=== PATIENT | male | born 1995 | race Two or more races ===

== ENCOUNTER 2024-07-31 10:24 | Emergency (ER) | payer OTHER, SELFPAY ==
[2024-07-31 11:09] VITALS: BP 145/83; PULSE 73; RESP 19; TEMP 36.9; O2SAT 97; BMI 34.0
--- NOTE | 2024-07-31 11:14 | EKG_ITS ---
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
--- NOTE | 2024-07-31 11:14 | XR_ITS ---
Examination: CT brain head without contrast. 2-D sagittal coronal reconstructions Date and time of exam:July 31, 2024 1208 hours INDICATIONS: Dizziness lightheadedness right-sided body numbness beginning 2 days ago CTDI: vol (mGy):54.1 DLP: (mGycm):1037 Technique: Multiple CT axial sections of the brain have been obtained, 5 mm slice thickness. Contrast has not been administered. 2-D sagittal, coronal reconstructions have been obtained Low dose protocols were performed. One or more of the following dose reduction techniques were used; automated exposure control, adjustment of the mA and/or KV according to patient size, use of iterative reconstruction technique. Findings: No significant ventricular enlargement. Intra-axial or extra-axial hemorrhage density is not seen. No mass effect or midline shift Basal cisterns are not remarkable. Fourth ventricle is midline. Cranial vault intact. Impression: Negative for acute hemorrhage, mass effect or midline shift As clinically warranted, brain MRI follow-up would best assess for demyelinating disease
--- NOTE | 2024-07-31 11:15 | PD.EDRME ---
Rapid Medical Screening Exam [facility] Arrival date/time: 07/31/24 10:24 28-year-old male with no known medical history presents to the emergency room with a chief complaint of right sided numbness to his face, hands, foot that occurred on Wednesday night. Patient states he saw his primary care provider and was sent to the emergency room. I have greeted and performed a focused initial assessment of this patient. A comprehensive ED assessment and evaluation of the patient, analysis of all test results, and completion of the medical decision making process will be conducted by additional ED providers. Chief Complaint: Headache Time Seen by Provider: 07/31/24 11:03 Vital signs: Vital Signs Temperature 98.5 F 07/31/24 11:09 Pulse Rate 73 07/31/24 11:09 Respiratory Rate 19 07/31/24 11:09 Blood Pressure 145/83 H 07/31/24 11:09 Pulse Oximetry (%) 97 07/31/24 11:09 Oxygen Delivery Method Room Air 07/31/24 11:09 Vital signs reviewed by provider: Yes
[2024-07-31 11:37] LABS: Basophils # (Auto) 0.1 Thou/mm3 (0.0-0.2); Basophils % (Auto) 1 % (0-2.5); Eosinophils # (Auto) 0.2 Thou/mm3 (0.0-0.5); Eosinophils % (Auto) 2 % (0-10); Hematocrit 48.4 % (41.0-53.0); Hemoglobin 16.6 g/dL (13.5-16.0); Immature Granulocytes % (Auto) 0 % (0-0); Immature Granulocytes Auto 0.02 Thou/mm3 (0.00-0.00); Lymphocytes # (Auto) 2.5 Thou/mm3 (1.0-4.8); Lymphocytes % (Auto) 36 % (10-50); Mean Corpuscular HGB Conc 34.3 g/dl (31.0-37.0); Mean Corpuscular Hemoglobin 30.8 pg (25.0-35.0); Mean Corpuscular Volume 90 fL (80-100); Monocytes # (Auto) 0.5 Thou/mm3 (0.0-0.8); Monocytes % (Auto) 7 % (0-12); Neutrophils # (Auto) 3.7 Thou/mm3 (1.8-7.7); Neutrophils % (Auto) 54 % (37-80); Nucleated Red Blood Cell % 0 /100 WBC (0); Platelet Count 277 Thou/mm3 (140-440); RDW Standard Deviation 41.5 fL (35.1-43.9); Red Blood Count 5.39 Miln/mm3 (4.50-5.90); White Blood Count 6.9 Thou/mm3 (3.8-10.6)
[2024-07-31 11:59] LABS: Alanine Aminotransferase 22 U/L (10-49); Albumin, Serum 5.5 gm/dL (3.5-5.0); Albumin/Globulin Ratio 2.2 (1.2-2.2); Alkaline Phosphatase 84 U/L (46-116); Anion Gap 8 (7-16); Aspartate Amino Transferase 19 U/L (0-34); BUN/Creatinine Ratio 11 Ratio (12-20); Bilirubin,Total 0.9 mg/dL (0.3-1.2); Blood Urea Nitrogen 12 mg/dL (9-23); Calcium 9.8 mg/dL (8.3-10.6); Calcium (Corrected) 9.8 mg/dL (8.5-10.1); Carbon Dioxide 29.3 mMol/L (20.0-31.0); Chloride 101 mMol/L (98-107); Creatinine (Component) 1.1 mg/dL (0.6-1.3); Globulin 2.5 gm/dL (2.3-3.5); Glucose 93 mg/dL (74-106); Osmolality,Calculated 275 (275-295); Potassium 4.2 mMol/L (3.4-5.1); Sodium 138 mMol/L (136-145); Troponin I < 0.020 ng/mL (0.0-0.045); eGFR > 60 See Note
[2024-07-31 12:05] LABS: Collection Type, Urine Clean Catch
[2024-07-31 12:16] LABS: Bilirubin,Urine Negative (Negative); Blood,Urine Negative (Negative); Clarity,Urine Clear (Clear/Hazy); Color,Urine Lt-Yellow (Lt Yel-Yel); Glucose, Urine Negative (Negative); Ketones,Urine Negative (Negative); Leukocyte Esterase,Urine Negative (Negative); Nitrite,Urine Negative (Negative); PH,Urine 6.5 (5.0-7.0); Protein,Urine Trace (Neg - Trace); RBC,Urine 3 /hpf (0-3); Specific Gravity,Urine 1.029 (1.001-1.035); Squamous Epithelial Cell,Urine < 1 /hpf (0-5); Urobilinogen,Urine Negative mg/dL (0.0-1.0); WBC,Urine < 1 /hpf (0-5)
--- NOTE | 2024-07-31 13:29 | EDNOTE_ITS ---
ED Headache RME/HPI General Chief Complaint: Headache Stated Complaint: NUMBNESS TO RIGHT SIDE OF BODY + GANDHI 2 DAYS AGO Time Seen by Provider: 07/31/24 11:03 Source: patient Arrival date/time: 07/31/24 10:24 28-year-old male with no known medical history presents to the emergency room with a chief complaint of right sided numbness to his face, hands, foot that occurred on Wednesday night. Patient states he saw his primary care provider and was sent to the emergency room. Mode of arrival: ambulatory Limitations: no limitations RME / HPI RME / HPI Narrative: 07/31/24 10:24 28-year-old male with no known medical history presents to the emergency room with a chief complaint of right sided numbness to his face, hands, foot that occurred on Wednesday night. Patient states he saw his primary care provider and was sent to the emergency room. I have greeted and performed a focused initial assessment of this patient. A comprehensive ED assessment and evaluation of the patient, analysis of all test results, and completion of the medical decision making process will be conducted by additional ED providers. Related Data Allergies Allergy/AdvReac Type Severity Reaction Status Date / Time amoxicillin Allergy Verified 12/28/22 07:52 Review of Systems Review of Systems Systems Reviewed: All systems reviewed, normal except as documented Constitutional Constitutional: Reports system reviewed and no additional complaints, except as documented, Denies fatigue, Denies fever(s), Reports headache(s) and Reports weakness Eyes Eyes: Reports system reviewed and no additional complaints, except as documented, Denies blurry vision and Denies change in vision ENT Ears, Nose, Mouth, and Throat: Reports system reviewed and no additional complaints, except as documented, Denies otalgia, Reports headache(s), Denies nasal congestion, Denies throat swelling and Denies vertigo Cardiovascular Cardiovascular: Reports system reviewed and no additional complaints, except as documented, Denies chest pain, Denies dyspnea and Denies dyspnea on exertion Respiratory Respiratory: Reports system reviewed and no additional complaints, except as documented, Denies chest congestion, Denies cough, Denies dyspnea, Denies dyspnea on exertion and Denies wheezing Gastrointestinal Gastrointestinal: Reports system reviewed and no additional complaints, except as documented, Denies abdominal pain, Denies cramping, Denies nausea and Denies vomiting Genitourinary Genitourinary: Reports system reviewed and no additional complaints, except as documented, Denies dysuria and Denies hematuria Musculoskeletal Musculoskeletal: Reports system reviewed and no additional complaints, except as documented, Denies back pain and Reports numbness Integumentary/Breasts Skin/Breast: Reports system reviewed and no additional complaints, except as documented and Denies wounds Neurologic Neurologic: Reports system reviewed and no additional complaints, except as documented, Denies confusion, Reports headache(s), Denies lack of coordination, Reports numbness, Reports paresthesias, Denies vertigo and Reports weakness Psychiatric Psychiatric: Reports system reviewed and no additional complaints, except as documented, Denies anxiety, Denies confusion, Denies depression, Denies paranoia, Denies suicidal ideation and Denies tactile hallucinations Endocrine Endocrine: Reports system reviewed and no additional complaints, except as documented and Denies fatigue Hematologic/Lymphatic Hematologic/Lymphatic: Reports system reviewed and no additional complaints, except as documented and Denies lymphadenopathy Allergic/Immunologic Allergic/Immunologic: Reports system reviewed and no additional complaints, except as documented, Denies throat swelling, Denies urticaria and Denies wheezing Past Medical History Past Medical History CARDIAC: Negative Cardiac Disorders or Congestive Heart Failure RESPIRATORY: Negative Chronic Obstructive Pulmonary Disease (COPD) or Asthma GENITOURINARY: Negative Renal Disease ENDOCRINE: Negative Diabetes Mellitus Type 1 or Diabetes Mellitus Type 2 HEMATOLOGIC: Negative Sickle Cell Disease Social History SMOKING STATUS: Never smoker ED Exam General Limitations: Present no limitations General appearance: Present alert and in no apparent distress Head Head exam: Present atraumatic, normocephalic and normal inspection Eye Eye exam: Present normal appearance, PERRL and EOMI ENT ENT exam: Present normal exam, normal oropharynx and mucous membranes moist Neck Neck exam: Present normal inspection, full ROM and trachea midline Chest Chest inspection: Present normal inspection and symmetric chest wall rise Respiratory Respiratory exam: Present normal lung sounds bilaterally Cardiovascular Cardiovascular exam: Present regular rate, normal rhythm and normal heart sounds Abdominal Exam Abdominal exam: Present soft and normal bowel sounds Extremities Exam Extremities exam: Present normal inspection and full ROM Back Exam Back exam: Present normal inspection and full ROM Neurological Exam Neurological exam: Present alert, oriented X3, CN II-XII intact, normal gait and reflexes normal Expanded Neurological Exam Patient oriented to: Present person, place and time Speech: Present fluid speech Cranial nerves: Normal: EOM function (II, III, IV, ), facial sensation (V) and facial palsy (VII) Cerebellar function: Normal: finger to nose Cerebellar function: Present normal gait Motor strength - LUE: 5/5 Motor strength - RUE: 5/5 Motor strength - LLE: 5/5 Motor strength - RLE: 5/5 Coma scale eye opening: spontaneous Coma scale motor response: obeys commands Coma scale verbal response: oriented Coma scale total: 15 Psychiatric Psychiatric exam: Present normal affect and normal mood Skin Skin exam: Present warm, dry, intact and normal color Course Quality Measures none Orders Category Date Time Status EKG (ED ONLY) *Do not use* NOW Care 07/31/24 11:[address] head/brain wo con Stat Exams 07/31/24 11:14 Completed EKG (ED Only) Stat Exams 07/31/24 11:14 Draft CBC Stat Lab 07/31/24 11:26 Completed Comprehensive Metabolic Panel Stat Lab 07/31/24 11:26 Completed Troponin I Stat Lab 07/31/24 11:26 Completed Urinalysis Stat Lab 07/31/24 11:59 Completed Urine Culture Stat Lab 07/31/24 11:59 Received Vital Signs Vital signs: Vital Signs Temperature 98.5 F 07/31/24 11:09 Pulse Rate 73 07/31/24 11:09 Respiratory Rate 19 07/31/24 11:09 Blood Pressure 145/83 H 07/31/24 11:09 Pulse Oximetry (%) 97 07/31/24 11:09 Oxygen Delivery Method Room Air 07/31/24 11:09 O2 saturation 97% within normal limits Procedures -ED EKG Interpretation #1: Date of EK07/31/24 Rate: 70 Interpretation: Reviewed by me EKG Impression: Normal sinus rhythm Additional EKG comment: EKG shows normal sinus rhythm at [address] deviation Headache MDM Narrative MDM Narrative:: 28-year-old male with no known medical history presents to the emergency room with a chief complaint of right sided numbness to his face, hands, foot that occurred on Wednesday night. Patient states he saw his primary care provider and was sent to the emergency room. Clinically the patient appears nontoxic and in no apparent distress. Physical examination shows a normal neurological exam. Pupils are PERRLA EOMs are intact patient is a GCS of 15 AAOx4. All the cranial nerves are intact. The numbness is now gone but the patient states it was to his face hands and right feet. It was unilateral. A CT of the head and brain was completed and was negative for any acute findings. CBC CMP were negative for any acute findings. Patient was discharged and educated to follow-up with primary care provider and return to the emergency room for any evidence of worsening signs or symptoms Patient data External records reviewed:: [facility] previous records Clinical information provided by:: patient Social determinants that could affect healthcare access:: none Patient has the following chronic illnesses:: No chronic illness How is presenting disease/condition affected by chronic disease/condition?: no chronic disease Evaluation data The following diagnostics were reviewed and interpreted by me:: lab results and radiology exam(s) Lab and/or radiology exams considered but not ordered:: Labs and radiology exams considered and ordered Interpretation Summary: CT head and brain-Findings: No significant ventricular enlargement. Intra-axial or extra-axial hemorrhage density is not seen. No mass effect or midline shift Basal cisterns are not remarkable. Fourth ventricle is midline. Cranial vault intact. Impression: Negative for acute hemorrhage, mass effect or midline shift As clinically warranted, brain MRI follow-up would best assess for demyelinating disease Medications / Prescriptions Medications or Prescriptions considered but not ordered:: No medication given Medication administrations:: No medication given Consultations Consultation(s) initiated? (list below): No Diagnosis Differential diagnosis headache: migraine, tension headache, subarachnoid h emorrhage, headache and other (Numbness and tingling) Most likely diagnosis given after review of the tests above:: Numbness and tingling Admission Indicated Admission indicated?: not indicated Admission Request Was there a request for admission?: No Disposition Plan Disposition Plan: Discharge Discharge Attestation Discharge Attestation: The patient and all family members were given an opportunity to ask questions and understood the discharge instructions. Discharge instructions specifically effects, indications for sooner follow up or return to the emergency department, and the expected course of current diagnosis. Patient condition: Stable Discharge Plan Plan Patient Disposition: HOME (Self Care) Disposition Comment: Stable Prescriptions/Referrals Referrals: No Primary/Family,Physician [Primary Care Provider] - In 1 week Problem List Clinical Impression: Numbness and tingling Patient/Caregiver Discharge Instructions Education Materials: ED Paraesthesias Additional Instructions: Please follow-up with your primary care provider in the next [address] of your head and brain was negative for any acute hemorrhage mass effect or midline shift. Your blood work was negative for any acute findings. If your symptoms continue or radiologist recommends an MRI of your head and brain. Please follow-up with your primary care provider For any evidence of worsening signs or symptoms please return to the emergency room immediately Print Language: [place]errat[place] Stand Alone Forms: Jannie Award Info., Patient Portal Info Letter PA/BONDACTOR MACHINE OPERATOR Supervising Physician PA/BONDACTOR MACHINE OPERATOR Supervising Physician: Dr Bryan
== END 2024-07-31 14:00 | disposition home or self-care (01) ==
PROVIDERS: Nurse Practitioner Family; Emergency Provider Emergency Medicine
DX: R20.0 Anesthesia of skin (principal); R20.2 Paresthesia of skin; R42 Dizziness and giddiness; R51.9 Headache, unspecified
CPT/HCPCS: 36415; 70450; 80053; 81001; 84484; 85025; 87086; 93005; 99284

== ENCOUNTER → 2024-08-07 | Outpatient (CLI) | payer OTHER, SELFPAY ==
--- NOTE | 2024-08-07 12:32 | XR_ITS ---
Examination: Cervical spine 3 views Technique one AP lateral coned AP odontoid cervical spine 3 views Exam date and time: August 07, 2024 1238 hours INDICATIONS: Lifting injury to the neck 6 weeks ago neck pain FINDINGS: Satisfactory alignment cervical vertebral bodies No cervical fracture No cervical disc narrowing IMPRESSION: No cervical fracture or arthritic change
--- NOTE | 2024-08-07 12:32 | XR_ITS ---
Examination: Lumbar spine 3 views TECHNIQUE: AP lateral coned lateral lower lumbar spine 3 views Exam date 9: August 07, 2024 1259 hours INDICATIONS: Lifting injury to lower back 6 weeks ago lower back pain. FINDINGS: Adequate alignment lumbar vertebral bodies No lumbar fracture Mild to moderate disc narrowing L5-S1 No spondylolisthesis IMPRESSION: Wyde-hq-teywttfh lumbar disc narrowing L5-S1
== END | disposition home or self-care (01) ==
PROVIDERS: PCP Nurse Practitioner Family; Referring Provider Nurse Practitioner Family; Visit Provider Nurse Practitioner Family
DX: M48.061 Spinal stenosis, lumbar region without neurogenic claudication (principal); M48.07 Spinal stenosis, lumbosacral region; S19.9XXS Unspecified injury of neck, sequela; S39.92XA Unspecified injury of lower back, initial encounter; X58.XXXS Exposure to other specified factors, sequela
CPT/HCPCS: 72040; 72100

== ENCOUNTER → 2024-09-08 | Outpatient (CLI) | payer OTHER, SELFPAY ==
--- NOTE | 2024-09-08 15:00 | XR_ITS ---
Examination: MRI of brain without intravenous contrast. MRI brain with intravenous contrast. Date and time of exam:September 08, 2024 1516 hours INDICATIONS: Headaches blurred vision numbness in the tongue and right arm beginning 2 months ago Technique: Multiple axial and sagittal images of the brain to been obtained. Siemens high-resolution 1.52 Yanet short bore scanner utilized. Sagittal sections, T1 weighted images, TR 500, TE 14, are performed. Axial sections proton-density and T2-weighted images have been obtained. Inversion recovery axial images, TR 9260, TE 111, TR 2500. Diffusion weighted images, axial sections, TR 4800, TE 128, B value 1000. Axial sections, ADC map, TR 4800, TE 128. Axial and coronal images were also obtained post 20 cc gadolinium administered intravenously. Findings:: Enlargement of the sella turcica is not present. The optic chiasm and infundibular stalk are not remarkable. There is no localized enlargement of the medulla or valery. Fourth ventricle and cerebellar tonsils appear normal in position. No subacute area of hemorrhage density is seen. Fourth ventricle is midline. Mass in the cerebellopontine angle region is not evident. 7th and 8th nerve complexes exhibit symmetry Globes are symmetrical Orbital musculature including medial lateral rectus muscles do not exhibit abnormality Increased white matter signal is not seen Effacement of the cortical sulcal markings is not identified. Mass effect upon the ventricular system is not identified. Diffusion-weighted images demonstrate 4 mm focus restricted diffusion right frontal lobe without matching signal deficit on the ADC map Contrast images demonstrate no abnormal enhancement Impression: Millimeters focus restricted diffusion right frontal lobe without matching signal deficit on the ADC map, clinical correlation advised No MR findings diagnostic for demyelinating disease No abnormal enhancing cerebellar or cerebral lesions
== END | disposition home or self-care (01) ==
LOC: SMRI 14:39
PROVIDERS: PCP Nurse Practitioner Family; Referring Provider Nurse Practitioner Family; Visit Provider Nurse Practitioner Family
DX: G93.9 Disorder of brain, unspecified (principal)
CPT/HCPCS: 70553; A9579

== ENCOUNTER → 2025-04-30 | Outpatient (CLI) | payer OTHER, SELFPAY ==
[2025-04-30 10:54] LABS: Misc Send Out* See Sep Rpt
[2025-04-30 11:39] LABS: Partial Thromboplastin Time 27.7 Seconds (22.0-36.0)
[2025-05-07 06:29] LABS: Antithrombin III, Activity 105 % normal (80-135); Antithrombin III, Antigen 96 % normal (80-120); Protein C Activity* 193 % normal (70-180); Protein C Antigen, Total* 117 % normal (70-140); Protein S Activity* 114 % normal (70-150); Protein S Antigen, Total* 99 % normal (70-140)
[2025-05-10 03:06] LABS: Cardiolipin Ab IgA <2.0 APL-U/mL; Cardiolipin Ab IgG <2.0 GPL-U/mL
[2025-05-10 06:39] LABS: B2-Glycoprotein I Ab IgA <2.0 U/mL; B2-Glycoprotein I Ab IgG <2.0 U/mL; B2-Glycoprotein I Ab IgM <2.0 U/mL; Cardiolipin Ab IgM <2.0 MPL-U/mL; Factor V Leiden Mutation NEGATIVE; Homocysteine* 20.7 umol/L (< OR = 13.5); MTHFR Mutation POSITIVE; Phos.Serine Ab IgG <9 U (< OR = 30); Phos.Serine Ab IgM <9 U (< OR = 30)
[2025-05-16 09:06] LABS: B2-Glycoprotein I Ab IgA SEE SEP RPT; B2-Glycoprotein I Ab IgG SEE SEP RPT; B2-Glycoprotein I Ab IgM SEE SEP RPT
== END | disposition home or self-care (01) ==
LOC: COPL 10:14
PROVIDERS: PCP Nurse Practitioner Family; Referring Provider Psychiatry & Neurology Neurology; Visit Provider Psychiatry & Neurology Neurology
DX: I63.9 Cerebral infarction, unspecified (principal)
CPT/HCPCS: 36415; 81240; 81241; 81291; 83090; 85300; 85301; 85302; 85303; 85305; 85306; 85730; 86146; 86147; 86148